=== PATIENT | female | born 1950 | race Caucasian/White ===

== ENCOUNTER → 2016-10-26 | Outpatient (CLI) | payer OTHER ==
--- NOTE | ~2016-10-26 | CT55 ---
[facility] A Service of [facility] RADIOLOGY TEXT RESULTS PATIENT: TAMIA DELEON [facility] : 54 UNIT #: [id number] AGE: [address]: Chelsy Kramer SEX: F ORDER DR: [id number] [address] [address] [id number] MR#: [id number] Acc #: [id number] NAME: TAMIA DELEON : 1950 SEX: F STUDY DATE/TIME: 10/26/2016 13:05 [facility] ROOM: STUDY DESCRIPTION: CT Chest W Con Attending Physician: Chelsy Kramer A.P.R.N. Ordering Physician: Chelsy Kramer A.P.R.N. Primary Care Physician: Desi Mayers M.D. MEDICAL IMAGING REPORT This report is preliminary unless electronic signature is present. EXAM CT of the chest with contrast HISTORY Pneumonia a year ago. TECHNIQUE Axial CT images were obtained from the thoracic inlet through the dome of the diaphragm following administration of intravenous contrast material. This CT exam was performed with one or more of the following radiation dose reduction techniques: automatic exposure control, adjustment of mA and/or kV according to patient size, and iterative reconstruction. FINDINGS This patient has a calcified pulmonary nodule seen within the right lower lobe. This measures up to 0.8 x 1 cm. It may simply reflect an area of scarring but I would suggest short-term CT followup in 3 months. No additional noncalcified pulmonary nodules or masses are seen. There is a low-attenuation lesion seen within the right lobe of the thyroid gland, incompletely evaluated on this study. There is no pleural or pericardial effusion. Mediastinal lymph nodes do not appear pathologically enlarged. Thoracic aorta measures within normal size limits. No acute abnormality is seen within the upper abdomen. Review of bony windows does not demonstrate any aggressive osseous abnormalities. Patient does have some post-surgical changes within the upper abdomen, [facility] A Service [facility] RADIOLOGY TEXT RESULTS PATIENT: TAMIA DELEON [facility] : 54 UNIT #: [id number] AGE: [address]: Chelsy Kramer SEX: F ORDER DR: likely reflecting gastrojejunostomy. IMPRESSION 1. Patient has a 1 x 0.8 cm noncalcified pulmonary nodule at the right lung base. This may simply be related to some scarring. However, I would suggest a short-term follow-up CT in 3 months to document resolution or stability. 2. Low-attenuation lesion identified within the right lobe of the thyroid gland. It is incompletely evaluated on this study and could be better assessed with a thyroid ultrasound. 3. Also, not mentioned in the report, is chronic-appearing scarring within the right upper lobe. Dictated by... Denise Thomas M.D. THIS IS AN ELECTRONICALLY VERIFIED REPORT Denise Thomas M.D. at 10/29/2016 7:55 AM AFF/pcl TD: 10/26/2016 17:06 JOB #: [id number] MEDICAL IMAGING REPORT Page 1 of 1
== END | disposition home or self-care (01) ==
LOC: SCT 12:40
PROVIDERS: Nurse Practitioner Adult Health
DX: J18.9 Pneumonia, unspecified organism (principal); R91.1 Solitary pulmonary nodule; E07.9 Disorder of thyroid, unspecified; J98.4 Other disorders of lung
CPT/HCPCS: 71260; 82565; Q9967